=== PATIENT | male | born 1955 | race Caucasian/White ===

== ENCOUNTER 2023-11-23 14:45 | Emergency (ER) | payer MEDICARE, SELFPAY ==
[2023-11-23 14:56] VITALS: BP 126/87; PULSE 124; RESP 16; TEMP 37; O2SAT 99
--- NOTE | 2023-11-23 14:59 | ED.GENADULT ---
HPI - General Adult General Chief complaint: Upper Respiratory Infection Stated complaint: Congestion Source: patient, RN notes reviewed and old records reviewed Mode of arrival: ambulatory Limitations: no limitations History of Present Illness HPI narrative: 60-year-old male presents to [facility] with complaints of sinus congestion, sinus pain, sinus pressure, productive cough this started 6 weeks ago. Patient states saw PCP that prescribed Augmentin 1 month ago patient states symptoms never resolved and now cannot return to his PCP due to insurance changes in October. Patient states coughing up thick green sputum patient states having thick green discharge from nose. Patient states that is using Flonase with no relief. MD complaint: Cough/congestion Onset (ago): week(s) (6) Severity: moderate Related Data Home Medications Medication Instructions Recorded Confirmed atorvastatin 20 mg tablet mg 11/23/23 baclofen 10 mg tablet mg 11/23/23 bupropion HCl 300 mg 24 hr tablet, mg PO 11/23/23 extended release celecoxib 200 mg capsule mg 11/23/23 clobetasol 0.05 % topical ointment topical 11/23/23 fluticasone fur. 200 mcg-umeclid inhalation 11/23/23 62.5 mcg-vilant 25 mcg inhalat.powder (Trelegy Ellipta) hydrocodone 10 mg-acetaminophen tablet 11/23/23 325 mg tablet insulin aspart U-100 100 unit/mL subcut 11/23/23 (3 mL) subcutaneous pen (Novolog FlexPen U-100 Insulin aspart) insulin glargine 100 unit/mL (3 unit subcut 11/23/23 mL) subcutaneous pen (Lantus Solostar U-100 Insulin) lisinopril 20 tablet 11/23/23 mg-hydrochlorothiazide 25 mg tablet metformin 500 mg tablet,extended mg PO 11/23/23 release 24 hr mometasone 50 mcg/actuation nasal intranasal 11/23/23 spray omeprazole 20 mg capsule,delayed mg 11/23/23 release ondansetron HCl 4 mg tablet mg 11/23/23 semaglutide 1 mg/dose (4 mg/3 mL) mg subcut 11/23/23 subcutaneous pen injector (Ozempic) tamsulosin 0.4 mg capsule mg PO 11/23/23 tiotropium bromide 2.5 inhalation 11/23/23 mcg/actuation mist for inhalation (Spiriva Respimat) topiramate 50 mg tablet mg 11/23/23 Allergies Allergy/AdvReac Type Severity Reaction Status Date / Time No Known Allergies Allergy Verified 11/23/23 15:02 Review of Systems Constitutional: Constitutional: Reports no additional constitutional complaints, Denies body ache(s), Denies chills, Denies fatigue, Denies fever(s) and Denies headache(s) Eyes: Eyes: Reports no additional eye complaints and Denies blurry vision ENT: Reports system reviewed and no additional complaints, except as documented, Denies vertigo, Denies dizziness, Denies ear discharge, Denies otalgia, Denies facial pain, Denies headache(s), Reports nasal congestion, Reports nasal discharge, Reports sinus pain, Reports sinus pressure and Denies sore throat Cardiovascular: Cardiovascular: Reports no additional cardiovascular complaints, Denies chest pain, Denies chest pain at rest, Denies rapid heart rate and Denies dyspnea Respiratory: Respiratory: Reports no additional respiratory complaints, Reports chest congestion, Reports cough, Reports pain on inspiration, Denies pain with cough and Denies dyspnea Gastrointestinal: Gastrointestinal: Denies abdominal pain, Denies diarrhea, Denies nausea and Denies vomiting Integumentary/Breasts: Skin/Breast: Denies rash Neurologic: Reports system reviewed and no additional complaints, except as documented, Denies vertigo, Denies dizziness and Denies headache(s) Endocrine: Endocrine: Denies fatigue PMFSH Comments At the time of my signature, I reviewed and agree with the nursing past medical, surgical, social, and family history. There is no relevant family history pertinent to the patient complaint. Exam Const: General: cooperative, healthy appearing, no acute distress and well nourished Nutritional Appearance: well nourished Orientation/consciousness: patient oriented x3
== END 2023-11-23 15:18 | disposition home or self-care (01) ==
PROVIDERS: Emergency Provider Registered Nurse
DX: J01.90 Acute sinusitis, unspecified (principal); I10 Essential (primary) hypertension; E11.9 Type 2 diabetes mellitus without complications
CPT/HCPCS: 99213; G0463